=== PATIENT | male | born 1960 | race African-American/Black ===

== ENCOUNTER 2020-07-13 16:09 | Inpatient (IN) | payer SELFPAY ==
[~2020-07-13] VITALS: Ht 180.3 cm; Wt 139.4 kg
[2020-07-13] MEDS ORDERED: FUROSEMIDE 40 MG/4 ML VIAL IV ONE (16:45)
[2020-07-13] MEDS ORDERED: NITROGLYCERIN 0.4 MG SL TAB SL PRN (18:30)
[2020-07-13] MEDS ORDERED: ACETAMINOPHEN 500 MG TAB PO PRN (18:30)
[2020-07-13] MEDS ORDERED: HYDROcodone-ACET 5/325MG TAB PO PRN (18:30)
[2020-07-13] MEDS ORDERED: MORPHINE SULF INJ 2 MG/ML SYRINGE 1ML IV PRN ×2 (18:30)
[2020-07-13] MEDS ORDERED: ONDANSETRON HCL 4 MG/2 ML VIAL IV PRN (18:30)
[2020-07-13 18:45] LABS: Basophils # (auto) 0 10 ^3/uL (0-0.2); Basophils % (auto) 0.7 % (0.0-2.0); Eosinophils # (auto) 0.1 10 ^3/uL (0-0.8); Eosinophils % (auto) 1.4 % (0.0-7.0); Hematocrit 45.9 % (41.0-53.0); Hemoglobin 14.9 g/dL (13.5-17.5); Lymphocytes # (auto) 1.9 10 ^3/uL (0.4-5.4); Mean Corpuscular Hemoglobin 31.6 pg (28.0-32.0); Mean Corpuscular Hgb Conc. 32.5 g/dL (32.0-36.0); Mean Corpuscular Volume 97.4 fL (80.0-100.0); Monocytes # (auto) 0.8 10 ^3/uL (0-1.3); Monocytes % (auto) 12.3 % (0.0-12.0); Neutrophils # (auto) 3.5 10 ^3/uL (1.6-8.6); Neutrophils % (auto) 55.6 % (37.0-80.0); Nucleated Red Blood Cells % 0.1 %; Platelet Count (auto) 193 10^3/uL (140-450); Red Blood Cells 4.71 10^6/uL (4.5-5.90); Red Cell Distribution Width 16.4 % (11.8-14.3); White Blood Cell 6.3 10^3/uL (4.4-10.8)
[2020-07-13 19:01] LABS: Albumin 3.4 g/dL (3.4-5.0); Calcium 8.3 mg/dL (8.5-10.1); Potassium 4.5 mmol/L (3.5-5.1)
[2020-07-13 19:07] LABS: BUN/Creatinine Ratio 12.4; Bilirubin, Total 0.8 mg/dL (0.2-1.0); Total Protein 6.7 g/dL (6.4-8.2)
[2020-07-13 19:28] LABS: CRP High Sensitivity 0.8 mg/dL (< 0.3)
[2020-07-13 20:05] LABS: Urine Bacteria NONE SEEN /hpf (None Seen); Urine Blood Negative /uL (Negative); Urine Hyaline Cast FEW /lpf (0 - 2); Urine Specific Gravity 1.006 (1.001-1.035); Urine WBC <1 /hpf (0 - 3)
[2020-07-13] MEDS: LABETALOL HCL 5 MG/ML 4ML SYRINGE IV PRN (20:14)
[2020-07-13] MEDS: ATORVASTATIN 20 MG TAB PO SCH (22:30)
[2020-07-14] MEDS: LABETALOL HCL 5 MG/ML 4ML SYRINGE IV PRN ×2 (00:43→08:33)
[2020-07-14] MEDS ORDERED: FUROSEMIDE 20 MG/2 ML VIAL IV SCH (06:00)
[2020-07-14 08:06] LABS: Basophils # (auto) 0 10 ^3/uL (0-0.2); Basophils % (auto) 0.8 % (0.0-2.0); Eosinophils # (auto) 0.1 10 ^3/uL (0-0.8); Eosinophils % (auto) 2.5 % (0.0-7.0); Hematocrit 45.8 % (41.0-53.0); Hemoglobin 14.9 g/dL (13.5-17.5); Lymphocytes # (auto) 2.1 10 ^3/uL (0.4-5.4); Mean Corpuscular Hemoglobin 31.5 pg (28.0-32.0); Mean Corpuscular Hgb Conc. 32.6 g/dL (32.0-36.0); Mean Corpuscular Volume 96.6 fL (80.0-100.0); Monocytes # (auto) 0.7 10 ^3/uL (0-1.3); Monocytes % (auto) 12.2 % (0.0-12.0); Neutrophils # (auto) 2.8 10 ^3/uL (1.6-8.6); Neutrophils % (auto) 48.5 % (37.0-80.0); Platelet Count (auto) 181 10^3/uL (140-450); Red Blood Cells 4.74 10^6/uL (4.5-5.90); Red Cell Distribution Width 16.2 % (11.8-14.3); White Blood Cell 5.8 10^3/uL (4.4-10.8)
[2020-07-14 08:25] LABS: Potassium 4.1 mmol/L (3.5-5.1)
[2020-07-14 08:35] LABS: BUN/Creatinine Ratio 13.2; Calcium 8.7 mg/dL (8.5-10.1)
[2020-07-14] MEDS ORDERED: LISINOPRIL 10 MG TAB PO SCH (10:00)
--- NOTE | 2020-07-14 10:35 | NUR ---
Telemetry admit from ER SAULOSANA admitted to Telemetry unit after SBAR received. Patient oriented to Tanvi Hensley primary RN, unit, room, bed, and unit policies regarding patient care and visiting hours. Patient now on continuous telemetry monitoring, tele box #85 and telemetry reading on arrival to unit is 72. Patient placed on bedside oxygen 2L NC, weighed by bedscale and encouraged to call if they need something. All questions and concerns addressed, patient verbalized understanding.
--- NOTE | 2020-07-14 10:55 | NUR ---
Unable to administer scheduled meds at this time. Patient laying to the side for an Ultrasound.
--- NOTE | 2020-07-14 11:02 | NUR ---
DR. hoover at bedside, discussed plan of care with patient. Will continue to monitor for changes.
[2020-07-14] MEDS ORDERED: OPTISON 3ml Vial for INJ IV ONE (11:18)
[2020-07-14] MEDS: FAMOTIDINE 20 MG TAB PO SCH (11:28)
[2020-07-14] MEDS: ASPirin-EC 81 mg tab PO SCH (11:30)
[2020-07-14 13:00] VITALS: BP 140/90
[2020-07-14] MEDS ORDERED: METOPROLOL TARTRATE 25 MG TAB PO ONE (14:45)
--- NOTE | 2020-07-14 16:15 | NUR ---
URINE COLLECTED AND SENT TO LAB FOR DRUG SCREEN
[2020-07-14 16:48] VITALS: BP 149/90
[2020-07-14 17:02] LABS: Amphetamine Screen, Urine NEGATIVE (NEGATIVE); Barbiturate Scree,Urine NEGATIVE (NEGATIVE); Benzodiazephine Screen, Urine NEGATIVE (NEGATIVE); Cannabinoid Screen, Urine NEGATIVE (NEGATIVE); Cocaine Screen, Urine NEGATIVE (NEGATIVE); Opiate Scree,Urine NEGATIVE (NEGATIVE); Phencyclidine Screen, Urine NEGATIVE (NEGATIVE)
[2020-07-14] MEDS: FUROSEMIDE 20 MG/2 ML VIAL IV SCH (18:34)
[2020-07-14] MEDS: SPIRONOLACTONE 25 MG TAB PO SCH (18:34)
--- NOTE | 2020-07-14 19:05 | NUR ---
ENDORSED CARE TO NOC SHIFT TANA GUEVARA.
[2020-07-14] MEDS: METOPROLOL TARTRATE 25 MG TAB PO SCH (21:51)
[2020-07-14] MEDS: ATORVASTATIN 20 MG TAB PO SCH (21:51)
[2020-07-14 22:00] VITALS: BP 141/82
[2020-07-15 05:00] VITALS: BP 130/71
[2020-07-15] MEDS: SPIRONOLACTONE 25 MG TAB PO SCH ×2 (05:59→19:36)
[2020-07-15] MEDS: FUROSEMIDE 20 MG/2 ML VIAL IV SCH ×2 (05:59→19:36)
[2020-07-15 07:07] LABS: Potassium 4.1 mmol/L (3.5-5.1)
[2020-07-15 07:12] LABS: BUN/Creatinine Ratio 12.8; Calcium 8.5 mg/dL (8.5-10.1); Magnesium 2.4 mg/dL (1.6-2.6)
[2020-07-15 07:25] LABS: Bilirubin, Total 0.8 mg/dL (0.2-1.0); Total Protein 6.4 g/dL (6.4-8.2)
[2020-07-15 08:00] VITALS: BP 151/98
[2020-07-15 09:00] VITALS: BP 151/98
[2020-07-15] MEDS: ENOXAPARIN SOD 40 MG/0.4 ML SYRINGE SC SCH (10:19)
[2020-07-15] MEDS: FAMOTIDINE 20 MG TAB PO SCH (10:20)
[2020-07-15] MEDS: ASPirin-EC 81 mg tab PO SCH (10:20)
[2020-07-15] MEDS: LISINOPRIL 10 MG TAB PO SCH (10:21)
[2020-07-15] MEDS: METOPROLOL TARTRATE 25 MG TAB PO SCH ×2 (10:21→21:38)
[2020-07-15 13:00] VITALS: BP 143/90
[2020-07-15 17:00] VITALS: BP 133/84
--- NOTE | 2020-07-15 20:00 | NUR ---
Opening Shift Note Assumed care of patient, awake and alert. No S/S of distress/SOB or pain. Instructed on POC and to call for assist PRN, will continue to monitor for changes Q1hr and PRN. bed in low position and call light within reach
[2020-07-15] MEDS: ATORVASTATIN 20 MG TAB PO SCH (21:37)
[2020-07-15 22:00] VITALS: BP_SYST 150; BP_SYST 151; BP_DIAS 107; BP_DIAS 109
[2020-07-15 22:28] LABS: INR 1.18 (0.9-1.15); Partial Thromboplastin Time 27.3 sec (23.0-31.2)
--- NOTE | 2020-07-15 22:43 | NUR ---
Consents Patient signed consents and verbalized understanding.Patient did not sign procedure consent per patient " i want to wait to sign because the side effects were not explained to me"
--- NOTE | 2020-07-15 22:43 | NUR ---
patient verbalized understanding to remain npo at midnight
[2020-07-16 05:00] VITALS: BP 142/96
--- NOTE | 2020-07-16 05:03 | NUR ---
linen/gown changed. Patient wiped down with chg wipes. patient verbalized understanding to remove dentures upon departure to surgery
[2020-07-16] MEDS: FUROSEMIDE 20 MG/2 ML VIAL IV SCH (05:25)
[2020-07-16] MEDS: SPIRONOLACTONE 25 MG TAB PO SCH (05:26)
--- NOTE | 2020-07-16 07:19 | NUR ---
REPORT GIVEN TO DAYSHIFT RN PATIENT DENIES SOB DISTRESS OR PAIN. IV IS INTACT AND PATENT.
[2020-07-16 08:23] LABS: Calcium 8.5 mg/dL (8.5-10.1); Potassium 4.6 mmol/L (3.5-5.1)
[2020-07-16 08:26] LABS: BUN/Creatinine Ratio 12.8
[2020-07-16 09:00] VITALS: BP 151/85
[2020-07-16] MEDS: ASPirin-EC 81 mg tab PO SCH (09:41)
[2020-07-16] MEDS: FAMOTIDINE 20 MG TAB PO SCH (09:42)
[2020-07-16] MEDS: METOPROLOL TARTRATE 25 MG TAB PO SCH ×2 (09:42→22:00)
[2020-07-16] MEDS: LISINOPRIL 10 MG TAB PO SCH (09:43)
[2020-07-16] MEDS: ENOXAPARIN SOD 40 MG/0.4 ML SYRINGE SC SCH (09:43)
--- NOTE | 2020-07-16 11:06 | NUR ---
IV insertion IV access obtained, via clean sterile technique by inserting gauge 22 catheter at right after 2 attempt(s). IV secured properly. No trauma to site. Patient tolerated well. NOTE: patient previous iv noted to be out. Patient stated that it was accidentally removed while he was washing himself.
--- NOTE | 2020-07-16 12:45 | NUR ---
Brought patient to dye lab technician per bed for left heart catheterization. Patient has been npo since after midnight. Patient was in no pain or distress. Report given to lab animal technician RN at bedside.
[2020-07-16 12:51] VITALS: BP 140/85
[2020-07-16] MEDS ORDERED: LIDOCAINE 2%HCL (LOCAL ANESTH.) INJ 20ML MDV ONE (13:42)
[2020-07-16] MEDS ORDERED: IOHEXOL 350 MG/ML 100ML IJ ONE (13:42)
[2020-07-16] MEDS ORDERED: hydrALAZINE HCL 25 MG TAB PO PRN (13:45)
[2020-07-16] MEDS ORDERED: fentaNYL CITRATE 100 MCG/2 ML VL ONE (13:52)
[2020-07-16] MEDS ORDERED: MIDAZOLAM HCL 1MG/1ML-2 ML VIAL ONE (13:52)
[2020-07-16] MEDS ORDERED: SODIUM CHL 0.9% 0 ML ONE (13:52)
[2020-07-16] MEDS ORDERED: ANGIOMAX 250 MG VIAL IV ONE (13:52)
[2020-07-16] MEDS ORDERED: ONDANSETRON HCL 4 MG/2 ML VIAL IV PRN (14:15)
[2020-07-16] MEDS ORDERED: HYDROcodone-ACET 5/325MG TAB PO PRN (14:15)
[2020-07-16] MEDS ORDERED: ACETAMINOPHEN 500 MG TAB PO PRN (14:15)
[2020-07-16] MEDS ORDERED: SODIUM CHLORIDE 0.9% 1,000 ML IV SCH (14:30)
--- NOTE | 2020-07-16 16:00 | NUR ---
PATIENT RETURNED TO HIS ROOM PER BED FROM EXTERIOR DOOR INSTALLER ACCOMPANIED SHINE GUEVARA AND REPORT RECEIVED AT BEDSIDE. PATIENT NOTED TO BE AAOX4, NO C/O PAIN AND WAS IN NO DISTRESS. DRESSINGS TO RIGHT GROIN NOTED TO BE CLEAN, DRY AND INTACT AND AND NO BLEEDING, PAIN, HEMATOMA NOTED ON THE SITE. PATIENT TO BE LYING FLAT IN BED FOR 30 MORE MINUTES AND PATIENT IS AWARE. WILL CONTINUE TO MONITOR PATIENT.
[2020-07-16 16:51] VITALS: BP 156/86
[2020-07-16] MEDS: FUROSEMIDE 40 MG/4 ML VIAL IV SCH (17:42)
--- NOTE | 2020-07-16 18:30 | NUR ---
PATIENT SITTING AT SIDE OF BED HAVING DINNER. NO C/O PAIN/ DISCOMFORT AT THIS TIME. RIGHT GROIN DRESSINGS NOTED TO BE CLEAN, DRY AND INTACT. NO BLEEDING , HEMATOMA NOTED ON THE SITE AND WAS SOFT TO TOUCH.
--- NOTE | 2020-07-16 21:17 | NUR ---
Patient status Received pt on bed alert and oriented, . No noted bleeding to rigth groin s/p cardio-cath. Denied pain at this time. Ambulatory, SBA to BR. Mainly, patient's issue right now that bothers him is his insurance status. Will need follow on the next business day.
[2020-07-16 22:00] VITALS: BP 140/77
[2020-07-16] MEDS: ATORVASTATIN 20 MG TAB PO SCH (22:00)
[2020-07-16] MEDS: SODIUM CHLOR 0.9% PF (SALINE LOCK) 10ML VIAL/SYR IV SCH (22:00)
[2020-07-16] MEDS: ISOSORBIDE MONONITRATE ER 60 MG TAB PO SCH (22:00)
[2020-07-17 05:00] VITALS: BP_SYST 131
[2020-07-17] MEDS: FUROSEMIDE 40 MG/4 ML VIAL IV SCH ×2 (06:12→17:49)
[2020-07-17] MEDS: SODIUM CHLOR 0.9% PF (SALINE LOCK) 10ML VIAL/SYR IV SCH ×3 (06:13→22:04)
[2020-07-17 06:51] LABS: Basophils # (auto) 0 10 ^3/uL (0-0.2); Basophils % (auto) 0.9 % (0.0-2.0); Eosinophils # (auto) 0.1 10 ^3/uL (0-0.8); Eosinophils % (auto) 2.5 % (0.0-7.0); Hematocrit 44.7 % (41.0-53.0); Hemoglobin 14.8 g/dL (13.5-17.5); Lymphocytes # (auto) 1.6 10 ^3/uL (0.4-5.4); Lymphocytes % (auto) 32.6 % (10.0-50.0); Mean Corpuscular Hemoglobin 31.6 pg (28.0-32.0); Mean Corpuscular Volume 95.8 fL (80.0-100.0); Monocytes # (auto) 0.7 10 ^3/uL (0-1.3); Monocytes % (auto) 14.2 % (0.0-12.0); Neutrophils # (auto) 2.4 10 ^3/uL (1.6-8.6); Neutrophils % (auto) 49.8 % (37.0-80.0); Nucleated Red Blood Cells % 0.3 %; Platelet Count (auto) 184 10^3/uL (140-450); Red Blood Cells 4.67 10^6/uL (4.5-5.90); Red Cell Distribution Width 15.8 % (11.8-14.3); White Blood Cell 4.9 10^3/uL (4.4-10.8)
[2020-07-17 06:58] LABS: BUN/Creatinine Ratio 13.5; Calcium 8.6 mg/dL (8.5-10.1); Potassium 4.2 mmol/L (3.5-5.1)
--- NOTE | 2020-07-17 07:30 | NUR ---
Opening Shift Note Assumed care of patient, awake and alert. No S/S of distress/SOB or pain. Instructed on POC and to call for assist PRN, will continue to monitor for changes Q1hr and PRN. Bed is locked and in lowest position. Call light within reach.
[2020-07-17 08:38] VITALS: BP 149/82
[2020-07-17] MEDS: FAMOTIDINE 20 MG TAB PO SCH (09:04)
[2020-07-17] MEDS: ISOSORBIDE MONONITRATE ER 60 MG TAB PO SCH ×2 (09:05→22:05)
[2020-07-17] MEDS: ASPirin-EC 81 mg tab PO SCH (09:06)
[2020-07-17] MEDS: LISINOPRIL 10 MG TAB PO SCH (09:06)
[2020-07-17] MEDS: METOPROLOL TARTRATE 25 MG TAB PO SCH ×2 (09:07→22:05)
[2020-07-17] MEDS: ENOXAPARIN SOD 40 MG/0.4 ML SYRINGE SC SCH (09:10)
[2020-07-17 12:29] VITALS: BP 131/71
--- NOTE | 2020-07-17 13:07 | NUR ---
Nutrition Assessment Est energy needs [id number] (11-14kcal/kg BW 152.4kg) Est protein needs 78-94g (1-1.2g/kg IBW 78kg) Will reassess prn. Addendum: 07/17/20 at [address] Amended: Links added.
[2020-07-17 16:38] VITALS: BP 152/81
[2020-07-17 20:00] VITALS: BP 141/60
[2020-07-17 22:00] VITALS: BP 141/60
[2020-07-17] MEDS: ATORVASTATIN 20 MG TAB PO SCH (22:05)
[2020-07-18 05:00] VITALS: BP 144/72
[2020-07-18] MEDS: SODIUM CHLOR 0.9% PF (SALINE LOCK) 10ML VIAL/SYR IV SCH ×3 (06:00→22:00)
[2020-07-18] MEDS: FUROSEMIDE 40 MG/4 ML VIAL IV SCH ×2 (06:00→17:43)
[2020-07-18 07:42] LABS: Potassium 3.8 mmol/L (3.5-5.1)
[2020-07-18 08:00] LABS: BUN/Creatinine Ratio 14.1; Calcium 8.3 mg/dL (8.5-10.1)
[2020-07-18 08:55] VITALS: BP 151/80
[2020-07-18] MEDS: FAMOTIDINE 20 MG TAB PO SCH (10:08)
[2020-07-18] MEDS: ENOXAPARIN SOD 40 MG/0.4 ML SYRINGE SC SCH (10:08)
[2020-07-18] MEDS: ASPirin-EC 81 mg tab PO SCH (10:08)
[2020-07-18] MEDS: LISINOPRIL 10 MG TAB PO SCH (10:09)
[2020-07-18] MEDS: METOPROLOL TARTRATE 25 MG TAB PO SCH ×2 (10:09→22:38)
[2020-07-18] MEDS: ISOSORBIDE MONONITRATE ER 60 MG TAB PO SCH ×2 (10:10→22:38)
[2020-07-18 12:26] VITALS: BP 121/69
[2020-07-18 16:54] VITALS: BP 139/72
[2020-07-18 21:00] VITALS: BP_SYST 0; BP_SYST 158; BP_DIAS 97
[2020-07-18] MEDS: ATORVASTATIN 20 MG TAB PO SCH (22:38)
[2020-07-19 05:00] VITALS: BP_SYST 0; BP_SYST 158; BP_DIAS 88
[2020-07-19] MEDS: FUROSEMIDE 40 MG/4 ML VIAL IV SCH (06:00)
[2020-07-19] MEDS: SODIUM CHLOR 0.9% PF (SALINE LOCK) 10ML VIAL/SYR IV SCH ×3 (06:25→21:03)
--- NOTE | 2020-07-19 07:30 | NUR ---
Opening Note Received report from pre billing specialist RN. Patient is awake, alert and oriented x4. No signs or symptoms of distress noted at this time. Patient denies pain or shortness of breath at this time. Patient is room air, respirations even and unlabored. Reviewed plan of care with patient, patient verbalized understanding. Bed in low and locked position, call light within reach. Will continue to monitor Q1 hour and PRN.
--- NOTE | 2020-07-19 09:30 | NUR ---
Yaima Aquino from [facility] at bedside.
[2020-07-19 09:37] VITALS: BP 163/103
[2020-07-19] MEDS: FAMOTIDINE 20 MG TAB PO SCH (09:41)
[2020-07-19] MEDS: METOPROLOL TARTRATE 25 MG TAB PO SCH (09:41)
[2020-07-19] MEDS: ASPirin-EC 81 mg tab PO SCH (09:42)
[2020-07-19] MEDS: ISOSORBIDE MONONITRATE ER 60 MG TAB PO SCH ×2 (09:43→21:04)
[2020-07-19] MEDS: ENOXAPARIN SOD 40 MG/0.4 ML SYRINGE SC SCH (09:44)
[2020-07-19] MEDS ORDERED: LISINOPRIL 10 MG TAB PO SCH (10:00)
[2020-07-19] MEDS ORDERED: SACUBITRIL-VALSARTAN 24mg/26mg TAB PO ONE (11:31)
[2020-07-19 13:00] VITALS: BP 149/80
--- NOTE | 2020-07-19 13:41 | NUR ---
I faxed life vest order to [employer].
--- NOTE | 2020-07-19 14:29 | NUR ---
assessment Patient is a 59 year old male who is alert and oriented. Patients cognitive abilities are intact. Prior to admission patient lived home alone and functioned independently. Patient informed me he is able to care for his own ADLs. Per patient he will return home to his prior living arrangements post discharge and will have transport home. Patient had no need for DME. Patient has no insurance. Patient has been assessed by Gregg Tang of [facility]. Patients [facility] application is secure. I have provided patient with resources for [facility], [facility] Cintron, and [facility] urgent care for follow up visits. I have provided patient with a prescription card from community assistance program. Patient has no post discharge needs identified at this time. No other interventions are needed. I informed patient he has a right to speak to a mental health social worker regarding all care. I informed patient he has a right to participate in any and all discharge planning. Patient does not have a POA and advanced directive. I have offered patient information on POA and advanced directives. I informed the patient the advantages and benefits of having an Advanced Directive. Patient verbalized understanding and agreed to discharge plan. Addendum: 07/19/20 at 1432 by Margarita ESPANA Amended: Links added.
[2020-07-19] MEDS ORDERED: POTASSIUM CHL 10 Meq TABLET PO ONE (14:45)
[2020-07-19] MEDS ORDERED: HCTZ 25 MG TAB PO ONE (14:45)
[2020-07-19 17:00] VITALS: BP 158/111
--- NOTE | 2020-07-19 19:10 | NUR ---
Closing Note Report given to manufacturing supervisor 2nd shift RN. No signs or symptoms of distress noted at this time.
--- NOTE | 2020-07-19 19:30 | NUR ---
assumed care, pt. awake, no c/o pain, no sob.
[2020-07-19] MEDS: CARVEDILOL 12.5 MG TAB PO SCH (21:04)
[2020-07-19] MEDS: ATORVASTATIN 20 MG TAB PO SCH (21:05)
[2020-07-19 22:00] VITALS: BP 144/94
[2020-07-20] MEDS: SODIUM CHLOR 0.9% PF (SALINE LOCK) 10ML VIAL/SYR IV SCH ×3 (05:42→21:40)
[2020-07-20 05:43] VITALS: BP 119/66
[2020-07-20 06:34] LABS: Potassium 3.8 mmol/L (3.5-5.1)
[2020-07-20 06:39] LABS: BUN/Creatinine Ratio 12.3; Calcium 8.4 mg/dL (8.5-10.1)
[2020-07-20 09:00] VITALS: BP 141/87
[2020-07-20] MEDS: SACUBITRIL-VALSARTAN 24mg/26mg TAB PO SCH ×2 (10:44→21:41)
[2020-07-20] MEDS: FAMOTIDINE 20 MG TAB PO SCH (10:44)
[2020-07-20] MEDS: POTASSIUM CHL 10 Meq TABLET PO SCH (10:45)
[2020-07-20] MEDS: HCTZ 25 MG TAB PO SCH (10:45)
[2020-07-20] MEDS: CARVEDILOL 12.5 MG TAB PO SCH ×2 (10:46→21:41)
[2020-07-20] MEDS: FUROSEMIDE 40 MG TAB PO SCH (10:46)
[2020-07-20] MEDS: ASPirin-EC 81 mg tab PO SCH (10:46)
[2020-07-20] MEDS: ISOSORBIDE MONONITRATE ER 60 MG TAB PO SCH ×2 (10:47→21:41)
[2020-07-20] MEDS: ENOXAPARIN SOD 40 MG/0.4 ML SYRINGE SC SCH (12:48)
[2020-07-20 13:00] VITALS: BP 121/71
--- NOTE | 2020-07-20 14:18 | NUR ---
Nutrition Followup Notes Pt wt is 44.5 kg Pt was sleeping when rounded this morning. Pt is with a Cardiac diet, appetite is good aeb 100% PO intake x 7 meals per RN doc. Pt with no distress. Est energy needs [id number] (11-14kcal/kg BW 152.4kg) Est protein needs 78-94g (1-1.2g/kg IBW 78kg) Will reassess prn. LABS: Ca 8.4 L, BUN 20 H, Creat 1.51 H, Alb 3.0 L GI: Pt had 1 BM on 07/19 per RN doc. BS: 20 low risk. Refer to Wound Assessment report for further details. PES: Obesity r/t caloric intake in excess of needs aeb pt with a BMI of 46.7kg/m2 Malnutrition related to morbid BMI> or equal to 40 Malnutrition related to morbid obesity Yes Comments Will continue to monitor PO status, skin status, pertinent labs and weight trends. Will f/u in 2-3 days 1) Continue to monitor po intake, labs, skin 2) Refer pt to [facility] on DC 3) Continue current plan of care
[2020-07-20 17:00] VITALS: BP 130/78
--- NOTE | 2020-07-20 19:30 | NUR ---
ASSUMED CARE, PT. AWAKE, NO C/O PAIN, NOT IN DISTRESS.
[2020-07-20] MEDS: ATORVASTATIN 20 MG TAB PO SCH (21:42)
[2020-07-20 22:00] VITALS: BP 137/69
[2020-07-21 05:00] VITALS: BP 114/69
[2020-07-21] MEDS: SODIUM CHLOR 0.9% PF (SALINE LOCK) 10ML VIAL/SYR IV SCH ×2 (05:10→16:31)
[2020-07-21 07:27] LABS: Potassium 3.8 mmol/L (3.5-5.1)
[2020-07-21 07:31] LABS: BUN/Creatinine Ratio 11.7; Calcium 8.5 mg/dL (8.5-10.1)
[2020-07-21 09:00] VITALS: BP 131/75
[2020-07-21] MEDS: ENOXAPARIN SOD 40 MG/0.4 ML SYRINGE SC SCH (10:52)
[2020-07-21] MEDS: FAMOTIDINE 20 MG TAB PO SCH (10:53)
[2020-07-21] MEDS: HCTZ 25 MG TAB PO SCH (10:53)
[2020-07-21] MEDS: ASPirin-EC 81 mg tab PO SCH (10:54)
[2020-07-21] MEDS: FUROSEMIDE 40 MG TAB PO SCH (10:54)
[2020-07-21] MEDS: SACUBITRIL-VALSARTAN 24mg/26mg TAB PO SCH (10:54)
[2020-07-21] MEDS: POTASSIUM CHL 10 Meq TABLET PO SCH (10:55)
[2020-07-21] MEDS: CARVEDILOL 12.5 MG TAB PO SCH (10:55)
[2020-07-21] MEDS: ISOSORBIDE MONONITRATE ER 60 MG TAB PO SCH (10:55)
[2020-07-21 13:00] VITALS: BP 115/71
[2020-07-21] MEDS ORDERED: CAR125T PO (13:26)
[2020-07-21] MEDS ORDERED: ISO60SRT PO (13:26)
[2020-07-21] MEDS ORDERED: ATOR20TA50 PO (13:26)
[2020-07-21] MEDS ORDERED: SACU1TAB PO (13:26)
[2020-07-21] MEDS ORDERED: FURO40TA4 PO (13:26)
[2020-07-21] MEDS ORDERED: ASPI-543 PO (13:26)
[2020-07-21] MEDS ORDERED: PANT40TA2 PO (13:26)
[2020-07-21] MEDS ORDERED: HCTZ25T PO (13:26)
[2020-07-21] MEDS ORDERED: POTA-167 PO (13:26)
--- NOTE | 2020-07-21 16:00 | NUR ---
PHONE CALL MADE TO [facility] REGARDING PATIENT PRESCRIPTIONS PER DISCHARGE. PATIENTS PRESCRIPTIONS WILL BE PICKED UP BEFORE DISCHARGE.
[2020-07-21 16:32] VITALS: BP 131/75
[2020-07-21 17:00] VITALS: BP 126/82
--- NOTE | 2020-07-21 17:00 | NUR ---
[facility] PATIENT GIVEN PRESCRIPTIONS FILLED BY [facility]. PATIENT GIVEN EDUCATION REGARDING MONITORING BLOOD PRESSURE AND FOLLOW UP WITH PRIMARY CARE PROVIDER. PATIENT VERBALIZED UNDERSTANDING.
--- NOTE | 2020-07-21 17:45 | NUR ---
DISCHARGE PATIENT GIVEN DISCHARGE PAPERWORK, PRESCRIPTIONS FILLED BY [facility], ALL QUESTIONS AND CONCERNS ANSWERED. PATIENT EDUCATED ON BLOOD PRESSURE MONITORING AND ON TAKING MEDICATIONS PRESCRIBED. PATIENT VERBALIZED UNDERSTANDING OF NOT STOPPING ANY MEDICATIONS UNLESS INSTRUCTED BY DOCTOR. PATIENT DOES NOT HAVE A PCP, PATIENT WILL FOLLOW UP WITH DISCHARGE CLINIC ON JUL 27 AT 5 PM. PATIENT WILL WORK WITH INSURANCE ON GETTING A PCP ASSIGNED IN ORDER TO GET A REFERRAL ORDER FOR FOLLOW UP WITH CARDIOLOGY DR. COTTRELL IN ONE WEEK. PATIENT GIVEN PRESCRIPTION OF BMP LAB WHEN FOLLOW UP WITH PCP. PATIENT WILL WORK WITH [facility] FOR [facility] WHEN DISCHARGED. PATIENT TELEMONITOR REMOVED AND SENT TO ICU HEART LAB. PATIENT WALKED OUT OF FACILITY WITH NO SIGNS OF DISTRESS OR SOB. IV removal IV DC'd with clean sterile technique, catheter fully intact. Pressure dressing applied to site. Patient tolerated well.
== END 2020-07-21 17:51 | disposition home or self-care (01) | DRG 280 ==
LOC: ER 16:09 → TELE 16:10 → TELE-WESTW 07-14 10:08 → TELE 07-19 13:38 → TELE-WESTW 07-19 13:40
PROVIDERS: ADMIT Nurse Practitioner Acute Care; ATTEND Internal Medicine
PROC: 4A023N7 Measurement of Cardiac Sampling and Pressure, Left Heart, Percutaneous Approach (ICD-10-PCS; principal; 2020-07-16)
PROC: B2111ZZ Fluoroscopy of Multiple Coronary Arteries using Low Osmolar Contrast (ICD-10-PCS; 2020-07-16)
PROC: B2151ZZ Fluoroscopy of Left Heart using Low Osmolar Contrast (ICD-10-PCS; 2020-07-16)
DX: I21.A1 Myocardial infarction type 2 (principal); I50.43 Acute on chronic combined systolic (congestive) and diastolic (congestive) heart failure; N17.0 Acute kidney failure with tubular necrosis; I13.0 Hypertensive heart and chronic kidney disease with heart failure and stage 1 through stage 4 chronic kidney disease, or unspecified chronic kidney disease; I16.9 Hypertensive crisis, unspecified; I42.0 Dilated cardiomyopathy; Z68.41 Body mass index [BMI] 40.0-44.9, adult; E78.5 Hyperlipidemia, unspecified; N18.9 Chronic kidney disease, unspecified; E66.01 Morbid (severe) obesity due to excess calories; G47.30 Sleep apnea, unspecified; Z82.49 Family history of ischemic heart disease and other diseases of the circulatory system; Z83.3 Family history of diabetes mellitus; Z87.891 Personal history of nicotine dependence
CPT/HCPCS: 36415; 71046; 80048; 80053; 80061; 80307; 81001; 82962; 83735; 83880; 84443; 84484; 85025; 85610; 85730; 86141; 86850; 86900; 86901; 93005; 93306; 99152; 99291; G0378; J2250; J3490; Q9956